=== PATIENT | female | born 1985 | race Hispanic/Latino ===

== ENCOUNTER 2019-10-24 10:05 | Outpatient (CLI) | payer OTHER ==
--- NOTE | 2019-10-24 11:41 | RAD ---
KUB: DATE: 10/24/2019. HISTORY: Abdominal pain, lower abdominal pain. FINDINGS: Bowel gas pattern appears nonobstructed. Supine imaging limits assessment for free intraperitoneal a ir. No acute osseous abnormality. IMPRESSION: Nonobstructed bowel gas pattern. POS: [facility]
== END 2019-10-24 10:06 | disposition home or self-care (01) ==
LOC: BICRAD 10:05
PROVIDERS: ATTEND Family Medicine
DX: R10.9 Unspecified abdominal pain (principal)
CPT/HCPCS: 74018